=== PATIENT | female | born 1960 | race Caucasian/White ===

== ENCOUNTER 2019-04-18 21:33 | Emergency (ER) | payer BC ==
--- NOTE | 2019-04-18 22:35 | EDM.PDOC ---
ED HPI GENERAL MEDICAL PROBLEM - General Chief Complaint: General Stated Complaint: "I think my blood pressure might be high" Time Seen by Provider: 04/18/19 22:05 Source of Information: Reports: Patient History Limitations: Reports: No Limitations - History of Present Illness INITIAL COMMENTS - FREE TEXT/NARRATIVE: Questions if her BP is high or if her anxiety is the problem. She is very stressed with recent of uncle that she was close to, her mother in law has been ill, she has been out of job since October due to low back pain issues and her has neck and back pain. She did go to Dr. Jara Tuesday for yearly physical and was told all was normal except lipids are elevated and liver enzymes are elevated. Has been to Dr. Handy and was told she is not surgical candidate and referred to pain management but has not been seen by them yet. She has recently had CT abdomen and will see Dr. Jara on Tuesday for those results. BP was up slightly in [place] 138/95 and has been up as high as 185/92 at home. She states that she has a "feeling in midchest, aching in axilla, and back discomfort. She took 4 baby ASA about 0 as she thought they would lower her BP. She feels that her anxiety is bad right now but has not taken her lorazepam as she wants to make sure if she is OK first. Denies any SOB or diaphoresis with it. 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 - Related Data Allergies Allergy/AdvReac Type Severity Reaction Status Date / Time amlodipine [From Norvasc] Allergy Cannot Verified 04/18/19 21:51 Remember celecoxib [From Celebrex] Allergy Cannot Verified 04/18/19 21:51 Remember ciprofloxacin [From Cipro] Allergy Cannot Verified 04/18/19 21:51 Remember latex Allergy Cannot Verified 04/18/19 21:51 Remember mirabegron [From Myrbetriq] Allergy Hypertensio Verified 04/18/19 21:51 n neomycin Allergy Cannot Verified 04/18/19 21:51 Remember Home Meds: Home Meds Ascorbate Calcium/Bioflavonoid [Henny-C 1,000 mg Tablet] 1 tab PO DAILY [History] Aspirin [Adult Low Dose Aspirin EC] 81 mg PO DAILY 12/09/16 [History] Calcium/Magnesium/Zinc [Calcium & Magnesium plus Zinc] 1 tab PO DAILY 12/09/16 [ History] Cholecalciferol (Vitamin D3) [Vitamin D] 5,000 unit PO DAILY 12/09/16 [History] Cranberry Extract [Cranberry] 300 mg PO BID 12/09/16 [History] Cyclobenzaprine HCl 10 mg PO TID PRN 12/09/16 [History] Estradiol 2 mg PO DAILY 12/09/16 [History] Fexofenadine/Pseudoephedrine [Fexofenadine-Pse ER 60-120 Tab] 1 tab PO BID PRN 12/09/16 [History] Ibuprofen 200 mg PO Q4HR PRN 12/09/16 [History] L.acidoph,Paracasei, B.lactis [Probiotic] 1 cap PO DAILY 12/09/16 [History] LORazepam 1 tab PO TID PRN 12/09/16 [History] Losartan/Hydrochlorothiazide [Losartan-HCTZ 100-12.5 MG] 1 tab PO DAILY [History] Multivitamin [Daily Multiple Vitamin] 1 tab PO DAILY 12/09/16 [History] Tolterodine Tartrate [Tolterodine Tartrate ER] 4 mg PO DAILY 12/09/16 [History] Ubidecarenone [Co Q-10] 1 cap PO BID 12/09/16 [History] Vitamin E 400 unit PO DAILY 12/09/16 [History] diphenhydrAMINE [Benadryl] 25 mg PO Q6H 12/09/16 [History] Past Medical History - History Comment History Comment: see nurses notes for past medical and surgical history. Social & Family History - Tobacco Use Smoking Status *Q: Former Smoker Used Tobacco, but Quit: Yes Month/Year Tobacco Last Used: November 2017 - Caffeine Use Caffeine Use: Reports: Soda - Recreational Drug Use Recreational Drug Use: No - Living Situation & Occupation Living situation: Reports: , with Spouse Occupation: Unemployed ED ROS GENERAL - Review of Systems Review Of Systems: See Below Constitutional: Denies: Fever, Chills, Weakness HEENT: Reports: No Symptoms Respiratory: Denies: Shortness of Breath, Cough Cardiovascular: Reports: Chest Pain, Blood Pressure Problem. Denies: Dyspnea on Exertion, Edema, Palpitations GI/Abdominal: Denies: Abdominal Pain, Constipation, Diarrhea : Reports: No Symptoms Musculoskeletal: Reports: Back Pain Skin: Reports: No Symptoms Neurological: Denies: Tingling Psychiatric: Reports: Anxiety ED EXAM, GENERAL - Physical Exam Exam: See Below Exam Limited By: No Limitations General Appearance: Alert, WD/WN, Anxious Ears: Normal External Exam, Normal Canal, Normal TMs Nose: Normal Inspection Throat/Mouth: Normal Inspection Head: Atraumatic, Normocephalic Neck: Normal Inspection, Supple, Non-Tender, Full Range of Motion Respiratory/Chest: No Respiratory Distress, Lungs Clear, Normal Breath Sounds, Chest Non-Tender Cardiovascular: Normal Peripheral Pulses, Regular Rate, Rhythm, No Edema GI/Abdominal: Normal Bowel Sounds, Soft, Non-Tender, No Organomegaly Back Exam: Normal Inspection, Full Range of Motion, Vertebral Tenderness (to low back.) Extremities: Normal Inspection, Normal Range of Motion, No Pedal Edema, Normal Capillary Refill Neurological: Alert, Oriented Skin Exam: Warm, Dry, Intact Course - Vital Signs Last Recorded V/S: Last Vital Signs Temp 97.9 F 04/18/19 22:38 Pulse 67 04/18/19 22:38 Resp 16 04/18/19 22:38 BP 135/89 04/18/19 22:38 Pulse Ox 98 04/18/19 22:38 - Orders/Labs/Meds Orders: Active Orders 24 hr Category Date Time Status EKG Documentation Completion [RC] STAT Care 04/18/19 21:45 Active Telemetry Monitoring [Cardiac Monitoring] [RC] . Care 04/18/19 21:45 Active DIRECTED Labs: Laboratory Tests 04/18/19 04/18/19 04/18/19 Range/Units 22:35 22:35 22:55 WBC 12.9 H (5.0-10.0) 10^3/uL RBC 5.21 (4.00-5.50) 10^6/uL Hgb 17.2 H (12.0-16.0) g/dL Hct 48.4 H (37.0-47.0) % MCV 92.9 (82.0-94.0) fL MCH 33.0 H (27.0-32.0) pg MCHC 35.5 (33.0-38.0) g/dL RDW Coeff of Darrell 12.3 (11.0-15.0) % Plt Count 430 H (150-400) 10^3/uL Neut % (Auto) 66.1 (35-85) % Lymph % (Auto) 26.1 (10-55) % Lawrence % (Auto) 7.0 (0-16) % Eos % (Auto) 0.5 (0-5) % Baso % (Auto) 0.3 (0-3) % Neut # (Auto) 8.54 H (1.80-7.00) 10^3/uL Lymph # (Auto) 3.37 (1.00-4.80) 10^3/uL Lawrence # (Auto) 0.91 H (0.00-0.80) 10^3/uL Eos # (Auto) 0.07 (0.00-0.45) 10^3/uL Baso # (Auto) 0.04 10^3/uL Sodium 137 (136-145) mEq/L Potassium 3.3 L (3.5-5.0) mEq/L Chloride 100 (98-106) mEq/L Carbon Dioxide 25 (21-32) mmol/L BUN 22 H D (7-18) mg/dL Creatinine 1.1 H (0.6-1.0) mg/dL Est Cr Clr Drug Dosing 52.82 mL/min Estimated GFR (MDRD) 51 L (>=60) mL/min Glucose 174 H D (75-99) mg/dL Calcium 9.5 (8.4-10.1) mg/dL Magnesium 2.3 (1.8-2.4) mg/dL Total Bilirubin 0.6 (0.0-1.0) mg/dL AST 176 H (15-37) U/L ALT 182 H (12-78) U/L Alkaline Phosphatase 87 (46-116) U/L Lactate Dehydrogenase 193 H (100-190) U/L Creatine Kinase 27 (21-215) U/L Troponin I < 0.017 (0.00-0.06) ng/mL Total Protein 8.2 (6.4-8.2) g/dL Albumin 4.2 (3.4-5.0) g/dL - Re-Assessments/Exams Free Text/Narrative Re-Assessment/Exam: 04/18/19 23:07In to discuss lab results and EKG. She states that she feels much better and reassured. Feels that going home and taking her lorazepam that she has at home is good plan and she will follow up with Dr. Jara on Tuesday for further results of testing. If anxiety returns she can take her lorazepam up to 3 times a day. Departure - Departure Time of Disposition: 23:09 Disposition: Home, Self-Care 01 Condition: Good Clinical Impression: Anxiety - Discharge Information *PRESCRIPTION DRUG MONITORING PROGRAM REVIEWED*: Not Applicable *COPY OF PRESCRIPTION DRUG MONITORING REPORT IN PATIENT MYRTLE: Not Applicable Instructions: Generalized Anxiety Disorder, Adult Forms: ED Department Discharge Additional Instructions: Follow up if anxiety does not improve recheck if any new concerns noted. Take lorazepam as prescribed - Problem List & Annotations (1) Anxiety SNOMED Code(s): 81865114 Code(s): F41.9 - ANXIETY DISORDER, UNSPECIFIED Status: Acute Current Visit: Yes - Problem List Review Problem List Initiated/Reviewed/Updated: Yes - My Orders Last 24 Hours: My Active Orders 04/18/19 21:45 EKG Documentation Completion [RC] STAT Telemetry Monitoring [Cardiac Monitoring] [RC] . DIRECTED - Assessment/Plan Last 24 Hours: My Active Orders 04/18/19 21:45 EKG Documentation Completion [RC] STAT Telemetry Monitoring [Cardiac Monitoring] [RC] . DIRECTED
[2019-04-18 22:39] VITALS: BP 135/89
[2019-04-18 23:00] LABS: CHLORIDE,CL 100 mEq/L (98-106); SODIUM,NA 137 mEq/L (136-145)
== END 2019-04-18 23:20 | disposition home or self-care (01) ==
LOC: CC.ED 21:33
DX: F41.9 Anxiety disorder, unspecified (principal); Z88.1 Allergy status to other antibiotic agents; Z91.040 Latex allergy status; Z79.899 Other long term (current) drug therapy; Z79.82 Long term (current) use of aspirin; Z87.891 Personal history of nicotine dependence
CPT/HCPCS: 36415; 80053; 82550; 83615; 83735; 84484; 85025; 93005; 99283-25

== ENCOUNTER 2021-09-27 15:25 | Emergency (ER) | payer BC, MEDICARE, OTHER ==
[2021-09-27 15:37] VITALS: BP 187/99; PULSE 63
--- NOTE | 2021-09-27 16:07 | EDM.PDOC ---
ED HPI GENERAL MEDICAL PROBLEM - General Chief Complaint: General Stated Complaint: Head pounding Time Seen by Provider: 09/27/21 15:55 Source of Information: Reports: Patient History Limitations: Reports: No Limitations - History of Present Illness INITIAL COMMENTS - FREE TEXT/NARRATIVE: Presents to the ER for BP check. Was checking it at home and it was high so she became anxious about it and came to the ER. Denies any chest pain or SOB. Does have some fatigue. Sleeping well No edema. Onset: Gradual - Related Data Allergies Allergy/AdvReac Type Severity Reaction Status Date / Time amlodipine [From Norvasc] Allergy Cannot Verified 09/27/21 15:37 Remember carbamazepine Allergy Cannot Verified 09/27/21 15:37 Remember celecoxib [From Celebrex] Allergy Cannot Verified 09/27/21 15:37 Remember ciprofloxacin [From Cipro] Allergy Cannot Verified 09/27/21 15:37 Remember dexamethasone [From Ciprodex] Allergy Itching Verified 09/27/21 15:37 hydrocodone Allergy Nervousness Verified 09/27/21 15:37 latex Allergy Cannot Verified 09/27/21 15:37 Remember mirabegron [From Myrbetriq] Allergy Hypertensio Verified 09/27/21 15:37 n neomycin Allergy Cannot Verified 09/27/21 15:37 Remember oxybutynin Allergy Hypertensio Verified 09/27/21 15:37 n Home Meds: Home Meds Aspirin [Adult Low Dose Aspirin EC] 81 mg PO DAILY 12/09/16 [History] Cyclobenzaprine HCl 10 mg PO TID PRN 12/09/16 [History] LORazepam 1 tab PO TID PRN 12/09/16 [History] Losartan/Hydrochlorothiazide [Losartan-HCTZ 100-12.5 MG] 1 tab PO DAILY 12/09/16 [History] Multivitamin [Daily Multiple Vitamin] 1 tab PO DAILY 12/09/16 [History] Levothyroxine 1 tab PO DAILY 04/19/19 [History] Fluticasone Propionate [Flonase] 1 inhalation INH DAILY 09/27/21 [History] atorvaSTATin [Lipitor] 1 tab PO DAILY 09/27/21 [History] cloNIDine [Catapres] 1 tab PO BID 09/27/21 [History] Past Medical History HEENT History: Reports: Impaired Vision Cardiovascular History: Reports: High Cholesterol, Hypertension Musculoskeletal History: Reports: Arthritis, Fibromyalgia Psychiatric History: Reports: Anxiety Oncologic (Cancer) History: Reports: None - Infectious Disease History Infectious Disease History: Reports: None - Past Surgical History HEENT Surgical History: Reports: Adenoidectomy, Myringotomy w Tube(s), Tonsillectomy Cardiovascular Surgical History: Reports: Other (See Below) Other Cardiovascular Surgeries/Procedures: sclerotherapy GI Surgical History: Reports: Appendectomy, Cholecystectomy, Hernia Repair/Other Female Surgical History: Reports: Hysterectomy - History Comment History Comment: see nurses notes for past medical and surgical history. Social & Family History - Family History Family Medical History: No Pertinent Family History - Tobacco Use Tobacco Use Status *Q: Former Tobacco User Used Tobacco, but Quit: Yes Month/Year Tobacco Last Used: 2015 - Caffeine Use Caffeine Use: Reports: Soda - Living Situation & Occupation Living situation: Reports: , with Spouse Occupation: Unemployed ED ROS GENERAL - Review of Systems Review Of Systems: See Below Constitutional: Reports: No Symptoms HEENT: Reports: No Symptoms Respiratory: Reports: No Symptoms Cardiovascular: Reports: No Symptoms. Denies: Chest Pain, Edema GI/Abdominal: Reports: No Symptoms Neurological: Denies: Confusion, Dizziness, Headache ED EXAM, GENERAL - Physical Exam Exam: See Below Exam Limited By: No Limitations General Appearance: Alert, WD/WN, No Apparent Distress Ears: Normal External Exam, Normal Canal, Normal TMs Nose: Normal Inspection Throat/Mouth: Normal Inspection, Normal Oropharynx, No Airway Compromise Head: Atraumatic, Normocephalic Neck: Normal Inspection, Supple, Non-Tender, Full Range of Motion Respiratory/Chest: No Respiratory Distress, Lungs Clear, Normal Breath Sounds Cardiovascular: Regular Rate, Rhythm, No Edema GI/Abdominal: Normal Bowel Sounds, Soft Neurological: Alert, Oriented Skin Exam: Warm, Dry Course - Vital Signs Last Recorded V/S: Last Vital Signs Temp 97.8 F 09/27/21 15:29 Pulse 63 09/27/21 15:29 Resp 19 09/27/21 15:29 BP 187/99 H 09/27/21 15:29 Pulse Ox 99 09/27/21 15:29 Departure - Departure Time of Disposition: 16:11 Disposition: Home, Self-Care 01 Condition: Good Clinical Impression: Hypertension - Discharge Information *PRESCRIPTION DRUG MONITORING PROGRAM REVIEWED*: Not Applicable *COPY OF PRESCRIPTION DRUG MONITORING REPORT IN PATIENT MYRTLE: Not Applicable Instructions: Hypertension, Adult, [id number] Additional Instructions: clonidine 0.1 -that you have at home- take 2 tablets twice a day. Take 2 when you get home and then twice a day starting tomorrow. continue to take the rest of your meds as normal Make appt with Gely next week to have your BP rechecked. Sepsis Event Note (ED) - Evaluation Sepsis Screening Result: No Definite Risk - Focused Exam Vital Signs: Vital Signs Temp Pulse Resp BP Pulse Ox 09/27/21 15:29 97.8 F 63 19 187/99 H 99 - Problem List & Annotations (1) Hypertension SNOMED Code(s): 04960900 Code(s): I10 - ESSENTIAL (PRIMARY) HYPERTENSION Status: Acute Priority: High Qualifiers: Hypertension type: primary hypertension Qualified Code(s): I10 - Essential (primary) hypertension - Problem List Review Problem List Initiated/Reviewed/Updated: Yes
== END 2021-09-27 16:20 | disposition home or self-care (01) ==
LOC: CC.ED 15:25
DX: I10 Essential (primary) hypertension (principal); E78.00 Pure hypercholesterolemia, unspecified; Z91.040 Latex allergy status; Z88.1 Allergy status to other antibiotic agents; Z88.8 Allergy status to other drugs, medicaments and biological substances; Z88.5 Allergy status to narcotic agent; Z79.82 Long term (current) use of aspirin; Z79.899 Other long term (current) drug therapy; Z87.891 Personal history of nicotine dependence
CPT/HCPCS: 99283

== ENCOUNTER → 2022-06-18 | Day surgery (SDC) | payer MEDICARE, OTHER ==
[~2022-06-18] MED LIST: Midazolam 1 MG/ML 2 ML SDV ONE
[2022-06-18] MEDS: Lactated Ringers 1,000 ML IV SCH (09:55)
[2022-06-18] MEDS: Ketorolac 30 MG/ML SDV IVPUSH ONE (12:13)
[2022-06-18 16:23] VITALS: BP 124/79; PULSE 64
== END ==
LOC: CC.SDS 09:37
PROVIDERS: ATTEND Family Medicine
DX: Z12.11 Encounter for screening for malignant neoplasm of colon (principal); D12.0 Benign neoplasm of cecum; D12.2 Benign neoplasm of ascending colon; D12.3 Benign neoplasm of transverse colon; D12.5 Benign neoplasm of sigmoid colon; D12.8 Benign neoplasm of rectum; K57.30 Diverticulosis of large intestine without perforation or abscess without bleeding; F41.8 Other specified anxiety disorders; G89.29 Other chronic pain; M79.7 Fibromyalgia; K21.9 Gastro-esophageal reflux disease without esophagitis; I10 Essential (primary) hypertension; E78.00 Pure hypercholesterolemia, unspecified; E03.9 Hypothyroidism, unspecified; Z88.8 Allergy status to other drugs, medicaments and biological substances; Z91.040 Latex allergy status; Z79.899 Other long term (current) drug therapy; Z90.49 Acquired absence of other specified parts of digestive tract; Z98.890 Other specified postprocedural states; Z87.891 Personal history of nicotine dependence
CPT/HCPCS: J1885; J2250; J7120

== ENCOUNTER 2023-11-06 12:04 | Emergency (ER) | payer MEDICARE, OTHER ==
[2023-11-06 12:12] VITALS: PULSE 98
[2023-11-06] MEDS ORDERED: Ketorolac 30 MG/ML SDV IM ONE (12:21)
[2023-11-06 12:47] LABS: BASOPHILS ABSOLUTE AUTO 0.03 10^3/uL (0.00-0.50); BASOPHILS PERCENT AUTO 0.5 % (0-1); EOSINOPHILS ABSOLUTE AUTO 0.01 10^3/uL (0.00-1.50); EOSINOPHILS PERCENT AUTO 0.2 % (0-6); HEMATOCRIT 43.5 % (37.0-47.0); HEMOGLOBIN 15.2 g/dL (12.0-16.0); LYMPHOCYTES ABSOLUTE AUTO 1.34 10^3/uL (0.60-5.00); LYMPHOCYTES PERCENT AUTO 22.2 % (24-44); MEAN CORPUSCULAR HEMOGLOBIN 32.1 pg (27.0-32.0); MEAN CORPUSCULAR HGB CONC 34.9 g/dL (32.0-36.0); MONOCYTES ABSOLUTE AUTO 0.83 10^3/uL (0.00-1.50); MONOCYTES PERCENT AUTO 13.8 % (0-10); NEUTROPHILS ABSOLUTE AUTO 3.82 x10^3/uL (1.80-8.00); NEUTROPHILS PERCENT AUTO 63.3 % (41-71); PLATELET COUNT,PLT 207 10^3/uL (150-400); RED BLOOD CELL COUNT 4.73 x10^6/uL (4.00-5.50)
[2023-11-06 12:59] LABS: ALBUMIN 3.7 g/dL (3.4-5.0); BILIRUBIN TOTAL 0.7 mg/dL (0.0-1.0); C-REACTIVE PROTEIN 5.37 mg/dL (<=0.50); CALCIUM 9.3 mg/dL (8.4-10.1); CREATININE 1.1 mg/dL (0.6-1.0); EST CRCL DRUG DOSING (CG) 50.28 mL/min; MAGNESIUM 1.8 mg/dL (1.8-2.4); POTASSIUM,K 3.1 mEq/L (3.5-5.0)
[2023-11-06] MEDS ORDERED: Potassium Chloride 20 MEQ Tab.ER PO ONE (13:08)
[2023-11-06] MEDS ORDERED: Magnesium Oxide 400 MG Tab PO ONE (13:08)
[2023-11-06 13:18] VITALS: BP 140/88
== END 2023-11-06 13:21 | disposition home or self-care (01) ==
LOC: CC.ED 12:04
DX: U07.1 COVID-19 (principal); E78.00 Pure hypercholesterolemia, unspecified; I10 Essential (primary) hypertension; Z79.899 Other long term (current) drug therapy; Z91.040 Latex allergy status
CPT/HCPCS: 36415; 80053; 83735; 85025; 86140; 87804; 96372; 99284; A9270-GY; J1885; U0002

== ENCOUNTER 2025-01-26 12:46 | Emergency (ER) | payer MEDICARE, OTHER ==
[2025-01-26] MEDS: oxyCODONE 5 MG Tab PO ONE (13:14)
[2025-01-26] MEDS: Tranexamic Acid 1,000 MG/10 ML Vial TOP ONE (13:19)
[2025-01-26] MEDS: Oxymetazoline 0.05% Nasal Spray 30 ML Bottle NAS ONE (14:14)
[2025-01-26 14:26] VITALS: BP 146/95; PULSE 66
== END 2025-01-26 14:48 ==
LOC: CC.ED 12:46
DX: R04.0 Epistaxis (principal); I10 Essential (primary) hypertension; E78.00 Pure hypercholesterolemia, unspecified; Z90.49 Acquired absence of other specified parts of digestive tract; Z90.710 Acquired absence of both cervix and uterus; Z79.899 Other long term (current) drug therapy; Z79.890 Hormone replacement therapy; Z79.51 Long term (current) use of inhaled steroids; Z88.5 Allergy status to narcotic agent; Z88.1 Allergy status to other antibiotic agents; Z91.040 Latex allergy status; Z88.8 Allergy status to other drugs, medicaments and biological substances
CPT/HCPCS: 99284; A9270